=== PATIENT | female | born 2000 | race Caucasian/White ===

== ENCOUNTER 2018-09-12 00:30 | Outpatient (CLI) | payer OTHER, SELFPAY ==
--- NOTE | 2018-09-12 13:18 | DI.US_ITS ---
SYMPTOM/DIAGNOSIS: F/U LOWER LESION RENAL ULTRASOUND: The kidneys are normal in size and shape. There is no evidence of hydronephrosis. There is echogenic focus of the lower pole of the left kidney which may represent a stone. No evidence of obstruction. On the right, there is a high echogenicity focus which is also associated with an apparent small cyst. Previous CT of 04/05/17 showed no evidence of urinary tract calcification but did appear to show a small lower pole right renal cyst. Urinary bladder is unremarkable in appearance with pre and postvoid urinary bladder volume measurements of 90 cc's and 4 cc's respectively. CONCLUSION: Question bilateral renal calculi. CT examination may be considered for further evaluation if clinically appropriate. No evidence of urinary tract obstruction.
== END 2018-09-12 00:50 ==
PROVIDERS: Visit Provider Physician Assistant
DX: N20.0 Calculus of kidney (principal); N28.1 Cyst of kidney, acquired
CPT/HCPCS: 76770

== ENCOUNTER 2019-01-06 12:48 | Emergency (ER) | payer OTHER, SELFPAY ==
--- NOTE | 2019-01-06 12:50 | ED.GENADUL_ITS ---
Discharge Plan Disposition Patient Disposition: HOME Condition: Fair Discharge Details Chief Complaint: Sorethroat Clinical Impression: Pharyngitis Primary Care Provider: Janet,Local ED Provider: Ema Ortiz Home Meds and New Rx's Prescriptions: Continued ibuprofen [Ibuprofen IB] 200 mg Tablet 400 mg PO PRN PRNRF: 0 1.09/27 (21) 1 TAB tablet 1 tab PO DAILY RF: 0 Discharge Instructions Instructions: Pharyngitis (ED) Additional Instructions: Encourage hydration. Tylenol and ibuprofen as needed for discomfort. We will call you if your pending strep testing is positive. Please follow-up with the [facility] later this week if your symptoms have not improved. You may consider following up with your primary care once home to discuss your recurrent pharyngitis and possible referral to ENT. If you develop difficulty swallowing, difficulty breathing, inability stay hydrated, fevers or other new/worsening symptoms please seek care urgently once again. Discharge Data Discharge Date/Time-TO BE ENTERED AT DEPARTURE: 01/06/19 14:03 Medical Decision Making Patient is a otherwise healthy 18-year-old female presenting today with chief complaint of sore throat that began yesterday. States she felt feverish last night. Has not noted any fevers today. Did take ibuprofen last night but has not taken anything for analgesics today. States that she had similar symptoms a few months ago at which time she was strep and mono negative. States that she is having pain particularly with swallowing. Denies any ear pain, cough, congestion. No recent travel. No known sick contacts. On exam, patient appears nontoxic. She does have notable bilateral tonsillar swelling. No trismus, hot potato voice. She has no swelling under the tongue. Swelling is equal bilaterally at 3+ tonsillar swelling. And concern for possible Streptococcus pharyngitis and rapid strep testing was ordered. Rapid strep testing was negative. Monospot was also obtained and noted to be negative. At this time, advised that this is likely viral. However, as this seems to be recurrent for the patient, I did advise that she should follow-up with primary care. Patient is currently a college student will follow-up at [facility]. Advised that she may need follow-up with ENT. She is given a dose of dexamethasone here to help with swelling. Advised that she may continue with Tylenol and ibuprofen as needed for discomfort. She is given strict return precautions. All her questions and concerns were addressed and she is in agreement with this plan. HPI General Mode of arrival: ambulatory . Date/Time Provider Initiated Documentation: 01/06/19 12:49 . Limitations to Documentation: no limitations . Information obtained by: patient, family (friend) and RN notes reviewed . History of Present Illness 18 year old F presents to the emergency department with the chief complaint of sore throat, described as moderate, Quality is described as burning, and is localized to the mouth. Patient reports no radiation. Patient started experiencing this day(s) (1) and it has been constant. No relieving factors improve symptom(s), Eating worsens symptoms . Patient notes fever/chills (felf feverish last night) and malaise; denies headaches, loss of appetite, nausea/vomiting, rash and shortness of breath. Patient did receive the following treatments prior to arrival, none Related Data Home Medications Medication Instructions Recorded Confirmed [facility] (21) 1 tab PO DAILY 04/05/17 01/06/19 ibuprofen [Ibuprofen IB] 400 mg PO PRN PRN 01/06/19 01/06/19 Allergies Allergy/AdvReac Type Severity Reaction Status Date / Time Penicillins Allergy Severe Unverified 01/06/19 13:01 Review of Systems Constitutional Reports as per HPI, Denies chills, Reports fatigue, Reports fever(s), Denies headache(s), Denies lethargy and Reports poor appetite Eyes Reports as per HPI, Denies eye discharge and Denies irritation ENT Reports as per HPI and Denies headache(s) Cardiovascular Reports as per HPI, Denies chest pain and Denies dyspnea Respiratory Reports as per HPI and Denies dyspnea Gastrointestinal Reports as per HPI, Denies abdominal pain, Denies change in bowel habits, Denies nausea and Denies vomiting Integumentary/Breasts Reports as per HPI and Denies rash Neurologic Reports as per HPI and Denies headache(s) Endocrine Reports fatigue [facility] Social History Smoking/Tobacco Use Status: Never Do you feel safe in your relationship?: Yes Exam Const General: cooperative, healthy appearing, comfortable, no acute distress, well developed and well groomed Nutritional Appearance: average body habitus and well nourished Orientation: alert and awake [facility] Head: normal to inspection, normocephalic and atraumatic Ears: hearing grossly normal bilaterally, external ears normal and TM's normal bilaterally General nose exam: external nose normal and nares normal Face and sinus: normal facial exam, sinuses nontender and face symmetric Mouth: oral mucosae normal, lip normal, tongue normal, oropharynx normal, mucous membranes dry (patient appears dry), no muffled voice, no trismus and No restricted motion Teeth and gingiva: dentition normal Throat: uvula midline, abnormal tonsil bilaterally erythema, exudates and hypertrophy 3+, no peritonsillar masses, uvula not displaced and no uvular edema Eyes General: appearance normal, both eyes and all related structures Neck Neck: normal visual inspection, full ROM, no lymphadenopathy and no meningeal signs Resp Effort & Inspection: normal respiratory effort, able to speak in complete sen tences and no respiratory distress Auscultation: clear to auscultation bilaterally, no rales, no rhonchi and no wheezes Cardio Rate: regular rate Rhythm: regular rhythm Heart Sounds: S1 normal and S2 normal Skin General skin exam: no rashes or lesions noted Neuro General: alert and awake Cognition: normal cognition Speech: speech normal Gait: normal gait Psych Appearance: grossly normal and well kempt Mental Status: mental status grossly normal Speech and Movement: speech and movement normal
[2019-01-06 12:56] VITALS: BP 136/83; PULSE 110; RESP 18; TEMP 36.6; O2SAT 97
[2019-01-06] MEDS: Ibuprofen 600 MG TAB PO (13:17)
[2019-01-06] MEDS: Acetaminophen 325 MG TAB 650 MG PO (13:18)
[2019-01-06] MEDS: Dexamethasone 10 MG/ML VIAL PO (13:23)
[2019-01-06 13:42] LABS: Mono Screening Negative (Negative)
[2019-01-06 14:04] VITALS: PULSE 92; RESP 16; TEMP 36.3; O2SAT 97
--- NOTE | 2019-01-09 18:11 | W.ED.FU ---
patient's strep culture positive for strep group c. Called patient to see if she was still sympomatic and if so prescribe antibiotics. she unfortunately didn't answer, message left for her to call back
--- NOTE | 2019-01-09 19:05 | W.ED.FU ---
pt called back and states her throat is much better, given this will hold on abx, advised if worsening to be seen and she voices understanding of this.
== END 2019-01-06 14:03 | disposition home or self-care (01) ==
PROVIDERS: Emergency Provider Physician Assistant
DX: J02.0 Streptococcal pharyngitis (principal)
CPT/HCPCS: 36415; 87880; 99283; 86308; 87081; J1100

== ENCOUNTER 2020-01-24 13:16 | Outpatient (REF) | payer OTHER, SELFPAY ==
[2020-01-24 14:03] LABS: Bilirubin Negative (Negative); Blood Small (Negative); Clarity Cloudy (Clear); Glucose Negative (Negative); Ketones Negative (Negative); Leukocyte Esterase Small (Negative); Nitrite Positive (Negative); Urobilinogen 0.2 EU/dL (Up TO 0.2)
[2020-01-24 14:17] LABS: Epithelial Cells Few HPF (Negative)
[2020-01-24 14:18] LABS: C & S Indicated? Yes; WBC >50 HPF (0-5)
== END 2020-01-24 13:36 ==
LOC: LBN 13:16
PROVIDERS: Visit Provider Family Medicine
DX: N39.0 Urinary tract infection, site not specified (principal)
CPT/HCPCS: 87077; 81003; 81015; 87086; 87186